=== PATIENT | female | born 1990 | race Caucasian/White ===

== ENCOUNTER 2019-05-12 14:54 | Inpatient (IN) | payer BC ==
[2019-05-12 15:44] VITALS: BMI 34.7
[2019-05-12] MEDS ORDERED: Butorphanol Tartrate 1 MG/ML VIAL SLOW IVP PRN (16:13)
[2019-05-12] MEDS ORDERED: Meperidine HCl/PF 25 MG/ML VIAL IM/IV PRN (16:13)
[2019-05-12] MEDS ORDERED: Ondansetron PF 4 MG/2 ML Vial IVP PRN (16:13)
[2019-05-12] MEDS ORDERED: hydrALAZINE 20 MG/ML VIAL SLOW IVP PRN (16:13)
[2019-05-12] MEDS ORDERED: Acetaminophen 500 MG TAB PO PRN (16:13)
[2019-05-12] MEDS ORDERED: Acetaminophen/Codeine 30-300mg Tablet PO PRN ×2 (16:13)
[2019-05-12] MEDS ORDERED: Promethazine HCl 25 MG/ML VIAL IM PRN (16:13)
[2019-05-12] MEDS ORDERED: Lidocaine 1% (PF) 30 ML VIAL SC PRN (16:13)
[2019-05-12] MEDS ORDERED: Lactated Ringer's 1,000 ML IV SCH (16:15)
[2019-05-12] MEDS ORDERED: NS w/ Oxytocin 10 units 500 ML IV SCH (16:15)
--- NOTE | 2019-05-12 16:19 | PDOC.LDHP ---
Labor and Delivery H&P Chief complaint: loss of fluid HPI: 28 yo WF presents c/o SROM at 1300 today, now with occ. UCs. Current gestational age (weeks): 39 Due date: 05/15/19 Dating criteria: last menstrual period Grav: 2 Para: 0 OB History Details: PNC with Dr. arturo Curiel Current complications: none Abnormal US findings: No Past Medical History: anxiety Current medications: pre- vitamins Previous surgical history: other (appendectomy, knee) Allergies/Adverse Reactions: Allergies Allergy/AdvReac Type Severity Reaction Status Date / Time amoxicillin [Amoxicillin] Allergy Verified 08/08/13 17:31 aspirin Allergy Verified 08/08/13 17:31 cefuroxime axetil Allergy Verified 08/08/13 17:31 [From Ceftin] erythromycin base Allergy Verified 08/08/13 17:31 [Erythromycin Base] ibuprofen Allergy Verified 08/08/13 17:31 Penicillins Allergy Verified 08/08/13 17:31 tree nut [Tree Nut] Allergy Verified 08/08/13 17:31 PISTACHIO Allergy Uncoded 08/08/13 17:31 - Physical Exam Vital signs reviewed and normal: yes General: resting Lungs: nonlabored breathing Abdomen: gravid FHT: category 1 [place] contractions every: Ucs q 3 -5 - Vaginal Exam cm dilated: 4 Effacement: 75% Station: -1 - OB Labs Blood type: O RH: negative Antibody Screen: negative HIV: negative RPR: negative HEPSAg: negative 1 hour GCT: negative GBS: negative Rubella: immune - Assessment L&D Assessment: term rupture in membranes - Plan Plan: admit to L&D, labor augmentation if indicated (wants low intervention at this time, Dr. Lopez notified.)
[2019-05-12 18:02] LABS: Hemoglobin 12.5 g/dL (12.0-16.0); Mean Corpuscular HGB CONC 35.2 g/dL (32.0-36.0); Mean Corpuscular Hemoglobin 32.2 pg (27.0-31.0); Mean Corpuscular Volume 91.5 fL (78.0-98.0); Mean Platelet Volume 9.7 fL (7.4-10.4); Platelet Count 143 thou/uL (130-400); RBC Distribution Width 11.7 % (11.5-14.5); Red Blood Cell (RBC) Count 3.87 mill/uL (4.20-5.40); White Blood Cell (WBC) Count 16.8 thou/uL (4.8-10.8)
[2019-05-12 18:43] LABS: HBSAg Index 0.31 S/CO (0-0.99); Hep B Surf Ag Non-Reactive S/CO (NonReactive); Syphilis Antibody Nonreactive (Nonreactive); Syphilis Antibody Index 0.04 S/CO (<1.00 Non-Reactive)
[2019-05-12] MEDS ORDERED: Oxytocin 10 UNITS/ML VIAL ONE (22:14)
[2019-05-13] MEDS: NS / Oxytocin 40 units/1000ml 1,000 ML IV PRN ×2 (01:18→02:55)
--- NOTE | 2019-05-13 01:47 | PDOC.OPDEL ---
OB Operative/Delivery Note Delivery Dr/Surgeon: Blake Pre-Delivery Diagnosis: active labor Procedure/Post Delivery Dx: spontaneous vaginal delivery Anesthesia: local - Additional Findings/Plan Placenta delivered: spontaneous Repaired Obstetrical Laceration: 4th degree Estimated blood loss: 350 cc Compilations/Other Findings: Viable male OA Apgars 9/9 4* lac repaired in layers. To recover in LDR.
[2019-05-13] MEDS: Lactated Ringer's 1,000 ML IV SCH (02:55)
[2019-05-13] MEDS ORDERED: Preparation H Ointment 28 GM TUBE PR PRN (06:34)
[2019-05-13] MEDS ORDERED: Benzocaine-Menthol 82.5 ML CAN TOP PRN (06:34)
[2019-05-13] MEDS ORDERED: Acetaminophen/Codeine 30-300mg Tablet PO PRN ×2 (06:34)
[2019-05-13] MEDS ORDERED: Ondansetron PF 4 MG/2 ML Vial IVP PRN (06:34)
[2019-05-13] MEDS ORDERED: Misoprostol 200 MCG TAB VAG PRN (06:34)
[2019-05-13] MEDS ORDERED: Milk Of Magnesia 30 ML UDCUP PO PRN (06:34)
[2019-05-13] MEDS ORDERED: diphenhydrAMINE 25 MG CAP PO PRN (06:34)
[2019-05-13] MEDS ORDERED: Bisacodyl 10 MG SUPP PR PRN (06:34)
[2019-05-13] MEDS ORDERED: Methylergonovine 0.2 MG TAB PO PRN (06:34)
[2019-05-13] MEDS ORDERED: Acetaminophen 500 MG TAB PO PRN (06:34)
[2019-05-13] MEDS ORDERED: Lanolin Ointment 7 GM TUBE TOP PRN (06:34)
[2019-05-13] MEDS ORDERED: hydrALAZINE 20 MG/ML VIAL SLOW IVP PRN (06:34)
[2019-05-13] MEDS ORDERED: NS / Oxytocin 40 units/1000ml 1,000 ML IV SCH (06:34)
[2019-05-13] MEDS ORDERED: Methylergonovine 0.2 MG/ML VIAL IM PRN (06:34)
[2019-05-13] MEDS ORDERED: Prenatal Vitamin 1 TAB PO SCH (09:00)
[2019-05-13] MEDS: Ferrous Sulfate 325 MG TAB PO SCH ×2 (13:37→16:50)
[2019-05-13] MEDS: Docusate Calcium (SURFAK) 240 MG CAP PO SCH ×2 (13:38→21:10)
[2019-05-14 01:00] VITALS: TEMP 98.1
[2019-05-14 08:33] VITALS: BP 119/56
== END 2019-05-14 18:05 | disposition home or self-care (01) | DRG 768 ==
LOC: L&D/OP 14:54 → L&D-LIB 18:07 → 3SW 05-13 12:53
PROVIDERS: ADMIT Obstetrics & Gynecology; ATTEND Obstetrics & Gynecology
PROC: 10E0XZZ Delivery of Products of Conception, External Approach (ICD-10-PCS; principal; 2019-05-12)
PROC: 0DQP0ZZ Repair Rectum, Open Approach (ICD-10-PCS; 2019-05-12)
DX: O42.92 Full-term premature rupture of membranes, unspecified as to length of time between rupture and onset of labor (principal); Z37.0 Single live birth; O70.3 Fourth degree perineal laceration during delivery; Z3A.39 39 weeks gestation of pregnancy; Z90.49 Acquired absence of other specified parts of digestive tract; Z88.0 Allergy status to penicillin; Z88.1 Allergy status to other antibiotic agents; Z88.6 Allergy status to analgesic agent; Z88.8 Allergy status to other drugs, medicaments and biological substances
CPT/HCPCS: 36415; 85027; 86780; 86850; 86870; 86900; 86901; 87340; 99285; J2001; J2590

== ENCOUNTER 2020-12-15 12:18 | Emergency (ER) | payer BC ==
--- NOTE | 2020-12-15 13:43 | RAD ---
EXAM: XR Chest 1 View Portable PROVIDED CLINICAL HISTORY: Shortness of breath, Covid positive COMPARISON: None FINDINGS: Cardiac and mediastinal silhouette is within normal limits. Patchy foci of interstitial opacity are s een involving the lower lung zones bilaterally, nonspecific. There is no focal consolidation, pleural fluid or pneumothorax evident. IMPRESSION: Nonspecific patchy bibasilar interstitial densities.
== END 2020-12-15 13:59 | disposition home or self-care (01) ==
LOC: ERS 12:18
DX: U07.1 COVID-19 (principal); J45.909 Unspecified asthma, uncomplicated; Z79.899 Other long term (current) drug therapy
CPT/HCPCS: 71045

== ENCOUNTER 2020-12-16 10:16 | Emergency (ER) | payer BC ==
[2020-12-16] MEDS ORDERED: Acetaminophen 500 MG TAB ONE (10:35)
[2020-12-16] MEDS ORDERED: Dexamethasone 10 MG/ML VIAL ONE (10:59)
[2020-12-16 11:05] LABS: #Lymphocytes 0.9 thou/uL (1.20-3.40); #Monocytes 0.7 thou/uL (0.11-0.59); #Neutrophils 5.8 thou/uL (1.40-6.50); %Basophils 0.1 % (0.0-1.0); %Eosinophils 0.1 % (0.0-10.0); %Lymphocytes 11.7 % (21.0-51.0); %Monocytes 9.8 % (0.0-10.0); %Neutrophils 78.3 % (42.0-75.0); Hemoglobin 13.2 g/dL (12.0-16.0); Mean Corpuscular Hemoglobin 29.8 pg (27.0-31.0); Mean Corpuscular Volume 90.2 fL (78.0-98.0); Mean Platelet Volume 8.5 fL (7.4-10.4); Platelet Count 153 thou/uL (130-400); RBC Distribution Width 11.9 % (11.5-14.5); Red Blood Cell (RBC) Count 4.44 mill/uL (4.20-5.40); White Blood Cell (WBC) Count 7.4 thou/uL (4.8-10.8)
--- NOTE | 2020-12-16 11:34 | RAD ---
Portable chest: HISTORY: Dyspnea COMPARISON: 12/15/2020 FINDINGS:Evidence of patchy infiltrate medial right lung base. Lungs otherwise clear and unchanged. IMPRESSION:Patchy medial right lung base infiltrate.
[2020-12-16 11:36] LABS: ALT (SGPT) 14 U/L (8-55); AST (SGOT) 16 U/L (5-34); Albumin 4.3 g/dL (3.5-5.0); Alkaline Phosphatase 35 U/L (40-110); Anion Gap 17 mmol/L (10-20); BUN (Urea Nitrogen) 14 mg/dL (7.0-18.7); Bilirubin, Total 0.7 mg/dL (0.2-1.2); CK (CPK) 67 U/L (29-168); Calc. Creatinine Clearance 0 mL/min (70-130); Calcium 8.6 mg/dL (7.8-10.44); Carbon Dioxide 25 mmol/L (22-29); Chloride 103 mmol/L (98-107); Globulin 3.4 g/dL (2.4-3.5); Glucose 104 mg/dL (70-105); Lipase 42 U/L (8-78); Potassium 3.6 mmol/L (3.5-5.1); Protein, Total 7.7 g/dL (6.0-8.3); Sodium 141 mmol/L (136-145)
--- NOTE | 2020-12-21 16:25 | EKG ---
Test Reason : Blood Pressure : / mmHG Vent. Rate : 106 BPM Atrial Rate : 106 BPM P-R Int : 142 ms QRS Dur : 070 ms QT Int : 320 ms P-R-T Axes : 063 044 010 degrees QTc Int : 425 ms Sinus tachycardia Possible Left atrial enlargement Borderline ECG Confirmed by ARIADNE SHARP, TYSON ([id number]), film or videotape editor SHARONDA CARVAJAL ([id number]) on 12/21/2020 4:24:47 PM Referred By: Confirmed By:TYSON RON MD
== END 2020-12-16 12:38 | disposition home or self-care (01) ==
LOC: ERS 10:16
DX: U07.1 COVID-19 (principal); J12.82 Pneumonia due to coronavirus disease 2019; J45.909 Unspecified asthma, uncomplicated; Z79.899 Other long term (current) drug therapy
CPT/HCPCS: 71045; 80053; 82550; 83690; 84484; 85025; 85379; 93005; 96374; J1100

== ENCOUNTER 2020-12-17 11:49 | Observation (INO) | payer BC ==
[2020-12-17] MEDS ORDERED: Dexamethasone 4 mg/ml Vial ONE (13:25)
--- NOTE | 2020-12-17 13:33 | RAD ---
Portable chest: HISTORY: Dyspnea COMPARISON: 12/16/2020 FINDINGS:Bilateral interstitial and hazy infiltrates are seen in the right lower lung in the left mid and lower lung. IMPRESSION:Bilateral infiltrates, more prominent today.
[2020-12-17] MEDS ORDERED: cefTRIAXone\\ROCEPHIN 2 GM VIAL ONE (13:35)
[2020-12-17] MEDS ORDERED: Azithromycin 500 MG VIAL ONE (13:35)
[2020-12-17 13:58] LABS: #Lymphocytes 1.1 thou/uL (1.20-3.40); #Monocytes 0.3 thou/uL (0.11-0.59); #Neutrophils 4.7 thou/uL (1.40-6.50); %Basophils 0.2 % (0.0-1.0); %Eosinophils 0.2 % (0.0-10.0); %Lymphocytes 17.8 % (21.0-51.0); %Monocytes 5.5 % (0.0-10.0); %Neutrophils 76.3 % (42.0-75.0); Hemoglobin 12.5 g/dL (12.0-16.0); Mean Corpuscular HGB CONC 32.6 g/dL (32.0-36.0); Mean Corpuscular Hemoglobin 29.5 pg (27.0-31.0); Mean Corpuscular Volume 90.4 fL (78.0-98.0); Mean Platelet Volume 8.5 fL (7.4-10.4); Platelet Count 160 thou/uL (130-400); RBC Distribution Width 11.8 % (11.5-14.5); Red Blood Cell (RBC) Count 4.23 mill/uL (4.20-5.40); White Blood Cell (WBC) Count 6.2 thou/uL (4.8-10.8)
[2020-12-17 14:21] LABS: ALT (SGPT) 11 U/L (8-55); AST (SGOT) 16 U/L (5-34); Albumin 3.9 g/dL (3.5-5.0); Alkaline Phosphatase 31 U/L (40-110); Anion Gap 13 mmol/L (10-20); BUN (Urea Nitrogen) 12 mg/dL (7.0-18.7); Bilirubin, Total 0.7 mg/dL (0.2-1.2); Calc. Creatinine Clearance 0 mL/min (70-130); Calcium 8.1 mg/dL (7.8-10.44); Carbon Dioxide 24 mmol/L (22-29); Chloride 105 mmol/L (98-107); Glucose 96 mg/dL (70-105); Potassium 3.4 mmol/L (3.5-5.1); Protein, Total 6.9 g/dL (6.0-8.3); Sodium 139 mmol/L (136-145)
[2020-12-17] MEDS ORDERED: Acetaminophen 500 MG TAB ONE (15:52)
== END 2020-12-17 16:51 | disposition home or self-care (01) ==
LOC: ERS 11:49 → ERHOLD 14:48
PROVIDERS: ADMIT Student in an Organized Health Care Education/Training Program; ATTEND Student in an Organized Health Care Education/Training Program
DX: U07.1 COVID-19 (principal); J12.82 Pneumonia due to coronavirus disease 2019; J45.909 Unspecified asthma, uncomplicated; F43.22 Adjustment disorder with anxiety; Z88.0 Allergy status to penicillin; Z88.1 Allergy status to other antibiotic agents; Z88.6 Allergy status to analgesic agent; Z91.018 Allergy to other foods
CPT/HCPCS: 36415; 71045; 80053; 83605; 85025; 87040; 94760; 96365; 96367; 96375; G0378; J0456; J0696; J1100

== ENCOUNTER 2020-12-19 04:48 | Emergency (ER) | payer BC ==
[2020-12-19] MEDS ORDERED: Acetaminophen 500 MG TAB ONE (05:25)
[2020-12-19 05:50] LABS: BHCG - Serum Negative (NEGATIVE); Pregs Control Background? CLEAR/WHITE (CLR/WHITE); Pregs Control Bar Appear? YES (CONTROL BAR)
[2020-12-19 06:17] LABS: ALT (SGPT) 11 U/L (8-55); AST (SGOT) 22 U/L (5-34); Albumin 3.8 g/dL (3.5-5.0); Alkaline Phosphatase 29 U/L (40-110); BUN (Urea Nitrogen) 9 mg/dL (7.0-18.7); Bilirubin, Total 0.8 mg/dL (0.2-1.2); Calc. Creatinine Clearance 0 mL/min (70-130); Calcium 8.4 mg/dL (7.8-10.44); Carbon Dioxide 19 mmol/L (22-29); Chloride 102 mmol/L (98-107); Globulin 3.5 g/dL (2.4-3.5); Glucose 98 mg/dL (70-105); Potassium 3.9 mmol/L (3.5-5.1); Protein, Total 7.3 g/dL (6.0-8.3); Sodium 133 mmol/L (136-145)
[2020-12-19 06:23] LABS: #Lymphocytes 1.4 thou/uL (1.20-3.40); #Monocytes 0.2 thou/uL (0.11-0.59); #Neutrophils 5.9 thou/uL (1.40-6.50); %Basophils 0.3 % (0.0-1.0); %Eosinophils 0.1 % (0.0-10.0); %Lymphocytes 18.9 % (21.0-51.0); %Monocytes 3.1 % (0.0-10.0); %Neutrophils 77.6 % (42.0-75.0); Hemoglobin 12.7 g/dL (12.0-16.0); Mean Corpuscular HGB CONC 31.3 g/dL (32.0-36.0); Mean Corpuscular Hemoglobin 28.5 pg (27.0-31.0); Mean Corpuscular Volume 91.3 fL (78.0-98.0); Mean Platelet Volume 8.4 fL (7.4-10.4); Platelet Count 192 thou/uL (130-400); RBC Distribution Width 11.9 % (11.5-14.5); Red Blood Cell (RBC) Count 4.46 mill/uL (4.20-5.40); White Blood Cell (WBC) Count 7.6 thou/uL (4.8-10.8)
[2020-12-19 06:33] LABS: Bacteria/HPF 1+ HPF (None Seen); Bilirubin Negative (Negative); Blood, Urine Negative (Negative); Clarity Clear (Clear); Glucose, Urine (Dipstick) Normal (Negative); Ketone, Urine Negative (Negative); Leukocyte Negative Leu/uL (Negative); Nitrite Negative (Negative); Protein, Urine (Dipstick) 70 mg/dL (Neg-Trace); RBC/HPF 0-3 HPF (0-3); Specific Gravity, Urine 1.027 (1.002-1.036); Urobilinogen Normal mg/dL (Less than 2); pH, Urine 6.5 (5.0-9.0)
[2020-12-19 06:42] LABS: Anion Gap 16 mmol/L (10-20)
--- NOTE | 2020-12-19 08:50 | CT ---
PRELIMINARY REPORT/[facility]/EMERGENCY AFTER HOURS PROCEDURE: EXAM: CTA Chest with Intravenous Contrast CLINICAL HISTORY: 30-year-old female patient presents to the ER with complaint of shortness of breath, recent COVID-19 diagnosis. The patient has had 4 visits to the ER this week for the same complaint and reports that s he is worsening. The patient reports that she has been taking azithromycin, steroids, albuterol inhal ers, with no relief. The patient reports that she is unable to control her fever at home with Tylenol and has been having worsening dyspnea with ambulation. The patient also reports chest pain but denie s any abdominal pain, nausea, vomiting, diarrhea, or other symptoms at this time. TECHNIQUE: Axial CTA images of the chest with intravenous contrast. Three-dimensional MIP/volume rendered reform ations were performed. CONTRAST: With; ISOVUE 370,100mL COMPARISON: None provided. FINDINGS: PULMONARY ARTERIES There is no intraluminal filling defect suspicious for PE. AORTA No thoracic aortic aneurysm or dissection. LUNGS There are moderate to severe patchy groundglass and alveolar airspace opacities involving both lower lobes, mild to moderate involvement of the left upper lobe and lingula and mild involvement of the ri ght upper lobe and right middle lobe. PLEURAL SPACES No pleural effusion. No pneumothorax. HEART AND MEDIASTINUM No cardiomegaly. No significant pericardial effusion. LYMPH NODES No lymphadenopathy. BONES No focal osseous abnormality or acute fracture. CHEST WALL AND UPPER ABDOMEN The gallbladder is contracted. There is a small stone visualized within the gallbladder. There is a 1.7 cm exophytic appearing lesion involving the posterior medial aspect of the left kidney , partially visualized. IMPRESSION: 1. There are moderate to severe patchy groundglass and alveolar airspace opacities involving both lo wer lobes, mild to moderate involvement of the left upper lobe and lingula and mild involvement of th e right upper lobe and right middle lobe. Suspect COVID19 pneumonia. 2. No evidence of pulmonary embolism. 3. Cholelithiasis. 4. 1.7 cm exophytic appearing lesion involving the left kidney, only partially visualized. Recommen d triple phase CT or MRI to better evaluate. ELECTRONICALLY SIGNED BY: Yue Nick MD Dec 19, 2020 6:42:44 AM SHOT [employer]ER This report is intended for review by the ordering physician only, in accordance of law. If you recei ve this report in error, please call [facility] at [phone]. FINAL REPORT EMERGENCY AFTER HOURS CTA OF THE CHEST WITH CONTRAST: FINDINGS/IMPRESSION: I agree with the findings and impression given in the preliminary report per [facility] physici an. 1. No evidence of pulmonary thromboembolism. 2. COVID pneumonia. 3. Cholelithiasis. 4. There is a possible mass emanating from the posterior aspect of the left kidney. A CT of the abdo men and pelvis with contrast is recommended for further evaluation. POS: JULIUS
[2020-12-19] MEDS ORDERED: Iopamidol-370 76% 500 ML 1 ML ONE (13:09)
== END 2020-12-19 07:35 | disposition home or self-care (01) ==
LOC: ERS 04:48
DX: U07.1 COVID-19 (principal); J45.909 Unspecified asthma, uncomplicated; Z79.51 Long term (current) use of inhaled steroids
CPT/HCPCS: 36415; 71275; 80053; 81003; 81015; 84703; 85025; 87040; Q9967

== ENCOUNTER 2021-04-15 08:26 | Observation (INO) | payer BC ==
[2021-04-08 13:26] VITALS: BMI 34.4
[2021-04-15 08:27] LABS: #Basophils 0.1 thou/uL (0.0-0.2); #Eosinphils 0.5 thou/uL (0.0-0.7); #Monocytes 0.7 thou/uL (0.11-0.59); #Neutrophils 6.4 thou/uL (1.40-6.50); %Basophils 0.9 % (0.0-1.0); %Eosinophils 4.4 % (0.0-10.0); %Lymphocytes 28.3 % (21.0-51.0); %Monocytes 6.3 % (0.0-10.0); %Neutrophils 60.1 % (42.0-75.0); Hemoglobin 13.5 g/dL (12.0-16.0); Mean Corpuscular HGB CONC 33.4 g/dL (32.0-36.0); Mean Corpuscular Volume 89.6 fL (78.0-98.0); Mean Platelet Volume 8.3 fL (7.4-10.4); Platelet Count 249 thou/uL (130-400); RBC Distribution Width 11.3 % (11.5-14.5); Red Blood Cell (RBC) Count 4.51 mill/uL (4.20-5.40); White Blood Cell (WBC) Count 10.7 thou/uL (4.8-10.8)
[2021-04-15 08:33] LABS: BHCG - Serum Negative (NEGATIVE); Pregs Control Background? CLEAR/WHITE (CLR/WHITE); Pregs Control Bar Appear? YES (CONTROL BAR)
[2021-04-15 08:40] LABS: INR-International Normal Ratio 1.1; PTT 35.9 sec (22.9-36.1); Prothrombin Time 13.8 sec (12.0-14.7)
[2021-04-15] MEDS ORDERED: Sodium Bicarbonate 2.5 MEQ/5 ML VIAL ONE (09:35)
[2021-04-15] MEDS ORDERED: Midazolam HCl 2 mg/2 ml Vial ONE (09:35)
[2021-04-15] MEDS ORDERED: Fentanyl 100 MCG/2 ML VIAL ONE (09:35)
[2021-04-15 12:35] LABS: Hemoglobin 11.7 g/dL (12.0-16.0)
[2021-04-15] MEDS ORDERED: diphenhydrAMINE 50 MG/ML VIAL IVP PRN (12:49)
[2021-04-15] MEDS ORDERED: HYDROcodone/Acetaminophen 5/325 mg Tablet PO PRN (12:49)
[2021-04-15] MEDS ORDERED: Morphine 4 MG/ML VIAL SLOW IVP PRN (12:49)
[2021-04-15] MEDS ORDERED: Zolpidem Tartrate 5 MG TAB PO PRN (12:49)
[2021-04-15 16:02] LABS: Hemoglobin 12.8 g/dL (12.0-16.0)
[2021-04-15] MEDS: Sodium Chloride 0.9% 1,000 ML IV SCH ×2 (16:33→23:59)
[2021-04-15 17:56] LABS: Hemoglobin 12.2 g/dL (12.0-16.0)
[2021-04-15] MEDS ORDERED: Acetaminophen 325 MG TAB PO PRN (20:13)
[2021-04-16 06:39] LABS: Hemoglobin 11.6 g/dL (12.0-16.0)
[2021-04-16 06:59] LABS: Anion Gap 12 mmol/L (10-20); BUN (Urea Nitrogen) 10 mg/dL (7.0-18.7); Calc. Creatinine Clearance 179 mL/min (70-130); Calcium 8.3 mg/dL (7.8-10.44); Carbon Dioxide 20 mmol/L (22-29); Chloride 111 mmol/L (98-107); Glucose 96 mg/dL (70-105); Potassium 4.1 mmol/L (3.5-5.1); Sodium 139 mmol/L (136-145)
[2021-04-16] MEDS: Sodium Chloride 0.9% 1,000 ML IV SCH (07:14)
[2021-04-16 12:10] VITALS: BP 112/75; TEMP 98.4
== END 2021-04-16 14:17 | disposition home or self-care (01) ==
LOC: CT 08:26 → SURG A 15:33
PROVIDERS: ADMIT Urology; ATTEND Urology
PROC: 0TB13ZX Excision of Left Kidney, Percutaneous Approach, Diagnostic (ICD-10-PCS; principal; 2021-04-16)
DX: N28.89 Other specified disorders of kidney and ureter (principal); N99.840 Postprocedural hematoma of a genitourinary system organ or structure following a genitourinary system procedure; N26.1 Atrophy of kidney (terminal); N20.0 Calculus of kidney; K80.20 Calculus of gallbladder without cholecystitis without obstruction; J45.909 Unspecified asthma, uncomplicated; E78.00 Pure hypercholesterolemia, unspecified; I95.9 Hypotension, unspecified; E78.5 Hyperlipidemia, unspecified; Z79.899 Other long term (current) drug therapy; Z88.1 Allergy status to other antibiotic agents; Z88.0 Allergy status to penicillin; Z88.2 Allergy status to sulfonamides; Z88.6 Allergy status to analgesic agent; Y84.8 Other medical procedures as the cause of abnormal reaction of the patient, or of later complication, without mention of misadventure at the time of the procedure
CPT/HCPCS: 36415; 50200; 74150; 77012; 80048; 84703; 85014; 85018; 85025; 85610; 85730; 86850; 86900; 86901; 88305; G0378; J2250; J3010